=== PATIENT | male | born 1950 | race Caucasian/White ===

== ENCOUNTER 2018-07-31 07:16 | Day surgery (SDC) | payer MEDICARE, BC ==
[~2018-07-31 07:16] MED LIST: Acetaminophen TAB* 325 MG PO PRN; Buffered Lidocaine 1% SYRIN* 1 ML/SYRINGE INTRADERM ONE
[2018-07-31] MEDS ORDERED: Midazolam* 1 MG/ML 2 ML VIAL (2 MG) ONE (08:59)
[2018-07-31 09:56] VITALS: BP 115/78
[2018-07-31] MEDS ORDERED: Povidone Iodine 5% OPTH* 30 ML BTL ONE (10:31)
[2018-07-31] MEDS ORDERED: Neomycin/Polymy/Dex OPTH.SUSP* MAXITROL 0.1% 5 ML ONE (10:31)
[2018-07-31] MEDS ORDERED: Ketorolac 0.5% OPHTH (NF) 0.5 % 5 ML BTL ONE (10:31)
[2018-07-31] MEDS ORDERED: Lidocaine 1%* 5 ML VIAL ONE (10:31)
[2018-07-31] MEDS ORDERED: Phenylephrine OPHTH SOL 2.5%* 2 ML ONE (10:31)
[2018-07-31] MEDS ORDERED: Lidocaine 2% EPI 1:200000 MPF*10-20 ML VIAL ONE (10:31)
[2018-07-31] MEDS ORDERED: acetaZOLAMIDE TAB* 250 MG ONE (10:31)
[2018-07-31] MEDS ORDERED: Cyclopentolate 1% OPTH.SOL* 2 ML BTL ONE (10:31)
[2018-07-31] MEDS ORDERED: Proparacaine 0.5% OPHTH.SOL* 15 ML BTL ONE (10:31)
--- NOTE | 2018-07-31 11:08 | OP ---
DATE OF OPERATION: 07/31/2018. DATE OF : 1950. SURGEON: Emerson Harris M.D. PREOPERATIVE DIAGNOSIS: Cataract right eye. POSTOPERATIVE DIAGNOSIS: Cataract right eye. OPERATIVE PROCEDURE: Extracapsular cataract extraction with intraocular lens implant right eye. PROCEDURE: The patient was brought to the operating room after being given 1/2% Alcaine with epineph rine drops in the preoperative area. The eye was prepped and draped in the usual sterile fashion. S terile drape and eyelid speculum were placed. Again, topical 1/2% Alcaine with epinephrine was given . A paracentesis incision was made at the 9 o'clock position with the No.75 blade. Clear cornea inc ision 2.2 x 2.2-mm was created at the 12 o'clock position starting at the anterior limbus using the 2 .2-mm keratome. The anterior chamber was irrigated with 0.4 mL of 1% non-preservative intracameral l idocaine and filled with DisCoVisc. A capsulorrhexis was completed using the cystotome and the Utrat a forceps. Hydrodissection was performed with balanced salt solution. The lens nucleus was removed w ith the Phacoemulsification handpiece without incident. Cortex was removed with the irrigation-aspir ation handpiece. The capsular bag was re-inflated using DisCoVisc and an [id number] implant was inser nghia with the shooter, oriented to the 47 degree meridian. All measurements were confirmed with ORA. The irrigation- aspiration handpiece was used to remove all residual DisCoVisc. The eye was refille d with balanced salt solution and the wound checked and found to be watertight. Topical Maxitrol christine ps were given. [id number]/[facility] #: [id number]
== END 2018-07-31 10:05 | disposition home or self-care (01) ==
LOC: OREAST 07:16
PROVIDERS: ATTEND Specialist
DX: H25.11 Age-related nuclear cataract, right eye (principal); H43.813 Vitreous degeneration, bilateral; J45.909 Unspecified asthma, uncomplicated; K21.9 Gastro-esophageal reflux disease without esophagitis
CPT/HCPCS: A9270-GY; J2250; V2788

== ENCOUNTER 2018-08-07 06:27 | Day surgery (SDC) | payer MEDICARE, BC ==
[2018-08-07] MEDS ORDERED: Midazolam* 1 MG/ML 2 ML VIAL (2 MG) ONE (07:28)
[2018-08-07 08:40] VITALS: BP 143/79
--- NOTE | 2018-08-07 08:42 | OP ---
OPERATIVE NOTE: DATE OF OPERATION: 08/07/18 DATE OF : [birth year] SURGEON: Emerson Harris M.D. PREOPERATIVE DIAGNOSIS: Cataract, left eye. POSTOPERATIVE DIAGNOSIS: Cataract, left eye. OPERATIVE PROCEDURE: Extracapsular cataract extraction with intraocular lens implant, left eye. PROCEDURE: The patient was brought to the operating room after being given 1/2% Alcaine with epineph rine drops in the preoperative area. The eye was prepped and draped in the usual sterile fashion. S terile drape and eyelid speculum were placed. Again, topical 1/2% Alcaine with epinephrine was given . A paracentesis incision was made at the 3 o'clock position with the No.75 blade. Clear cornea inc ision 2.2 x 2.2-mm was created at the 6 o'clock position starting at the anterior limbus using the 2. 2-mm keratome. The anterior chamber was irrigated with 0.4 mL of 1% non-preservative intracameral li docaine and filled with DisCoVisc. A capsulorrhexis was completed using the cystotome and the Utrata forceps. Hydrodissection was performed with balanced salt solution. The lens nucleus was removed wi th the Phacoemulsification handpiece without incident. Cortex was removed with the irrigation-aspira tion handpiece. The capsular bag was re-inflated using DisCoVisc and an SV25T0 23.5 implant was inse rted with the shooter. All measurements were confirmed with ORA. The irrigation-aspiration handpiec e was used to remove all residual DisCoVisc. The eye was refilled with balanced salt solution and th e wound checked and found to be watertight. Topical Maxitrol drops were given. [id number]/[facility] #: [id number]
[2018-08-07] MEDS ORDERED: Cyclopentolate 1% OPTH.SOL* 2 ML BTL ONE (10:13)
[2018-08-07] MEDS ORDERED: Lidocaine 1%* 5 ML VIAL ONE (10:13)
[2018-08-07] MEDS ORDERED: Phenylephrine OPHTH SOL 2.5%* 2 ML ONE (10:13)
[2018-08-07] MEDS ORDERED: acetaZOLAMIDE TAB* 250 MG ONE (10:13)
[2018-08-07] MEDS ORDERED: Neomycin/Polymy/Dex OPTH.SUSP* MAXITROL 0.1% 5 ML ONE (10:13)
[2018-08-07] MEDS ORDERED: Ketorolac 0.5% OPHTH (NF) 0.5 % 5 ML BTL ONE (10:13)
[2018-08-07] MEDS ORDERED: Lidocaine 2% EPI 1:200000 MPF*10-20 ML VIAL ONE (10:13)
[2018-08-07] MEDS ORDERED: Povidone Iodine 5% OPTH* 30 ML BTL ONE (10:13)
[2018-08-07] MEDS ORDERED: Proparacaine 0.5% OPHTH.SOL* 15 ML BTL ONE (10:14)
== END 2018-08-07 08:30 | disposition home or self-care (01) ==
LOC: OREAST 06:27
PROVIDERS: ATTEND Specialist
DX: H25.12 Age-related nuclear cataract, left eye (principal); H43.813 Vitreous degeneration, bilateral; J45.909 Unspecified asthma, uncomplicated; E78.00 Pure hypercholesterolemia, unspecified; K21.9 Gastro-esophageal reflux disease without esophagitis
CPT/HCPCS: A9270-GY; J2250; V2788